=== PATIENT | female | born 1975 | race Caucasian/White ===

== ENCOUNTER 2023-05-16 13:23 | Outpatient (CLI) | payer BC, SELFPAY | END 2023-05-16 13:24 | disposition home or self-care (01) | PROVIDERS: Visit Provider Physician Assistant | DX: Z13.9 Encounter for screening, unspecified (principal) | CPT/HCPCS: 80061; 82947; 84443 ==

== ENCOUNTER 2023-09-12 14:27 | Outpatient (CLI) | payer BC, SELFPAY ==
--- NOTE | 2023-09-12 14:40 | CRLHL7_ITS ---
For Patients: As a result of the Century Cures Act, medical imaging exams and procedure reports are released immediately into your electronic medical record. You may view this report before your referring provider. If you have questions, please contact your health care provider. BILATERAL SCREENING MAMMOGRAM WITH COMPUTER-AIDED DETECTION AND TOMOSYNTHESIS TECHNIQUE: CC and MLO views were obtained. These mammographic images have been obtained using full-field digital technique. These mammographic images were interpreted with the benefit of computer-aided detection. Breast Tomosynthesis was used in this interpretation. COMPARISON FILM: 11/24/20,03/11/17. FINDINGS: There are scattered areas of fibroglandular density. IMPRESSION: There is no radiographic evidence for malignancy. ASSESSMENT: BI-RADS Category 1: Negative RECOMMENDATION: Routine screening mammogram in 1 year. A lay language report of this examination will be provided to the patient. Luis Rosario M.D. Diagnostic Radiologist [email or web address] SP/Dictated by: Luis Rosario MD @ 09/13/2023 9:01:00 AM (Electronically Signed)
== END 2023-09-12 14:28 | disposition home or self-care (01) ==
LOC: MAMMO 14:29
PROVIDERS: Visit Provider Physician Assistant
DX: Z12.31 Encounter for screening mammogram for malignant neoplasm of breast (principal)
CPT/HCPCS: 77063; 77067

== ENCOUNTER 2024-09-03 15:33 | Outpatient (CLI) | payer BC, SELFPAY ==
[2024-09-06 04:48] LABS: HPV Source Cervix; HPV, High Risk by TMA Not Detected
== END 2024-09-03 15:34 | disposition home or self-care (01) ==
PROVIDERS: Visit Provider Obstetrics & Gynecology
DX: Z12.4 Encounter for screening for malignant neoplasm of cervix (principal); Z11.51 Encounter for screening for human papillomavirus (HPV)
CPT/HCPCS: 87624; 87625; 88141; 88142

== ENCOUNTER 2024-09-23 07:48 | Outpatient (CLI) | payer BC, SELFPAY | END 2024-09-23 07:49 | disposition home or self-care (01) | LOC: NFLDREF 09-26 02:33 | PROVIDERS: Visit Provider Obstetrics & Gynecology | DX: Z13.220 Encounter for screening for lipoid disorders (principal) | CPT/HCPCS: 80061 ==